=== PATIENT | female | born 1995 | race Caucasian/White ===

== ENCOUNTER 2018-02-20 11:05 | Emergency (ER) | payer MEDICAID ==
[~2018-02-20] VITALS: Ht 154.9 cm; Wt 70.5 kg
[~2018-02-20 11:05] MED LIST: IBUPROFEN600 MG PO; PERCOCET 5-3251 TAB PO
[2018-02-20 11:11] VITALS: Ht 154.9 cm; Wt 70.5 kg
[2018-02-20] MEDS ORDERED: PREDNISONE20 MG PO (13:16)
[2018-02-20] MEDS ORDERED: EPIPEN0.3 MG/0.3 IM (13:16)
[2018-02-20 13:35] VITALS: BP 122/76
== END 2018-02-20 13:37 | disposition home or self-care (01) ==
LOC: D.ER 11:05
DX: L50.9 Urticaria, unspecified (principal)

== ENCOUNTER → 2018-11-26 14:40 | Outpatient (CLI) | payer SELFPAY ==
[2018-02-20 11:11] VITALS: BMI 29.3
[~2018-11-26 14:40] MED LIST changes: +EPIPEN0.3 MG/0.3 IM; +PREDNISONE20 MG PO
[2018-11-26 17:10] LABS: BASOPHILS 0.1 % (0-2); EOSINOPHILS 2.2 % (0-7); HEMATOCRIT 33.6 % (36.0-48.0); HEMOGLOBIN 11.3 g/dL (12-16); IMMATURE GRANULOCYTES 0.2 % (0-5); LYMPHOCYTES 20.3 % (15-50); MCHC 33.6 g/dL (31.0-37.0); MCV 86.4 fL (80.0-100.0); MEAN PLATELET VOLUME 11.5 fL (7.4-10.4); MONOCYTES 5.7 % (2-11); NEUTROPHILS 71.5 % (40-80); RBC 3.89 10x6/uL (4.00-5.40); RDW 14.2 % (11.5-14.5); WBC 9.8 10x3/uL (4.8-10.8)
[2018-11-26 17:12] LABS: PLATELET COUNT 177 10x3/uL (130-400)
[2018-11-26 17:31] LABS: APPEARANCE CLEAR (CLEAR); BILIRUBIN NEGATIVE (NEGATIVE); COLOR YELLOW (YELLOW); GLUCOSE NEGATIVE (NEGATIVE); KETONE NEGATIVE (NEGATIVE); NITRITE NEGATIVE (NEGATIVE); PROTEIN NEGATIVE (NEGATIVE); SPECIFIC GRAVITY 1.015 (1.005-1.020); UROBILINOGEN NORMAL (NORMAL)
== END | disposition home or self-care (01) ==
LOC: D.LDO 14:40
PROVIDERS: ATTEND Obstetrics & Gynecology
DX: O26.892 Other specified pregnancy related conditions, second trimester (principal); Z3A.21 21 weeks gestation of pregnancy

== ENCOUNTER 2019-03-19 17:11 | Inpatient (IN) | payer MEDICAID ==
[~2019-03-19] VITALS: Ht 154.9 cm; Wt 90.7 kg
[2019-03-19 18:26] LABS: APPEARANCE CLOUDY (CLEAR); BILIRUBIN NEGATIVE (NEGATIVE); COLOR YELLOW (YELLOW); GLUCOSE NEGATIVE (NEGATIVE); KETONE NEGATIVE (NEGATIVE); NITRITE NEGATIVE (NEGATIVE); PROTEIN 1+ mg/dL (NEGATIVE); SPECIFIC GRAVITY 1.025 (1.005-1.020); UROBILINOGEN NORMAL (NORMAL)
[2019-03-20] VITALS (16 sets, daily range): BP systolic 110–132; BP diastolic 56–83; Ht 154.9 cm; Wt 90.7 kg
[2019-03-20 00:15] LABS: HEMATOCRIT 33.1 % (36.0-48.0); MCH 27.5 pg (26.0-34.0); MCHC 33.2 g/dL (31.0-37.0); MCV 82.8 fL (80.0-100.0); MEAN PLATELET VOLUME 11.5 fL (7.4-10.4); RDW 14.3 % (11.5-14.5); WBC 11.3 10x3/uL (4.8-10.8)
--- NOTE | 2019-03-20 02:43 | NUR ---
REC'D PT BACK TO ROOM AT 0243 FROM RECOVERY ROOM. DROWSY, BUT EASILY AROUSES TO VOICE. VSS. FUNDUS FIRM WITH SLIGHT LEFT SHIFT NOTED, U1 WITH SMALL RUBRA LOCHIA, NO CLOTS NOTED. C/O PAIN 7/10 FOLLOWING FUNDAL CHECK. BREATH SOUNDS CLEAR AND EQUAL, HYPOACTIVE BOWEL SOUNDS PRESENT X4 QUADRANTS. DRSG COVERING LOWER TRANSVERSE ABD INCISION CLEAN DRY AND INTACT WITH NO DRAINAGE NOTED. SCD'S ON BLE. INSTRUCTED ON USE OF INCENTIVE SPIROMETER WITH UNDERSTANDING DEMONSTRATED X3. COUGH AND DEEP BREATHING DONE WITH GOOD EFFORT. 250 MLS YELLOW CONCENTRATED URINE EMPTIED FROM BAZZI, BAZZI LEFT TO BEDSIDE DRAINAGE. SIGNIFICANT OTHER BROUGHT TO ROOM PER PT REQUEST. ICE WATER PROVIDED AND PT INSTRUCTED TO TAKE SLOW SMALL SIPS, VERBALIZES UNDERSTANDING. BED IN LOW POSITION WITH UPPER SIDE RAILS RAISED X2. CALL LIGHT AND PHONE WITHIN REACH. PT ABLE TO MOVE BILATERAL FEET AT THIS TIME.
--- NOTE | 2019-03-20 03:00 | NUR ---
V/S REMAIN STABLE. FUNDUS FIRM, MIDLINE AND U1 WITH SCANT RUBRA LOCHIA NOTED TO PERIPADS, NO CLOTS PERSENT. REPORTS PAIN INCREASED TO 9/10 WITH FUNDAL CHECK AND REQUEST PAIN MEDICATION. NO ORDERS NOTED AT THIS TIME. DR. GOLDEN PAGED WITH IMMEDIATE CALL BACK AND ORDERS REC'D.
--- NOTE | 2019-03-20 03:20 | NUR ---
HYDROMORPHONE FITTER MACHINIST INITIATED PER ORDER. PT INSTRUCTED ON USE AND DEMONSTRATES UNDERSTANDING. TEARFUL, PAIN 10/10. FITTER MACHINIST BUTTON USED PER PT AT THIS TIME. FUNDUS FIRM MIDLINE AND U1 WITH SCANT RUBRA LOCHIA NOTED, NO CLOTS NOTED. VISITORS AT BEDSIDE AT THIS TIME. WILL CONTINUE TO MONITOR.
--- NOTE | 2019-03-20 04:00 | NUR ---
V/S REMAIN STABLE. REPORTS THAT PAIN IS "BEGINNING TO GET BETTER" /. REPORTS THAT SHE IS USING MANAGER UNIVERSAL BUTTON. FUNDUS REMAINS FIRM MIDLINE AND U1 WITH SMALL RUBRA LOCHIA, PERICARE DONE AND PERIPAD CHANGED. NO CLOTS NOTED. DRSG TO LOWER TRANSVERSE ABD INCISION REMAINS CLEAN DRY AND INTACT WITH NO DRAINAGE NOTED. CONVERSING WITH VISITORS INTERMITTENTLY. COUGH AND DEEP BREATHING DONE WITH GOOD EFFORT. BED IN LOW POSITION WITH UPPER SIDE RAILS RAISED X2. CALL LIGHT AND PHONE WITHIN REACH. WILL CONTINUE TO MONITOR. ICE PACK REPLACED.
--- NOTE | 2019-03-20 04:33 | NUR ---
BONDING WITH INFANT AND ATTEMPTING TO BREAST FEED. CECILIA LUZ RN AT BEDSIDE WITH PT. VSS. PT REQUEST FUNDAL CHECK BE PERFORMED FOLLOWING BREAST FEEDING. WILL CONTINUE TO MONITOR.
--- NOTE | 2019-03-20 05:03 | NUR ---
BONDING WITH INFANT. REQUESTS ASSISTANCE WITH BF. ASSISTED PT WITH GETTING TO LATCH. NOTED TO LATCH TO LEFT BREAST AND SUCK AND SWALLOW 3 TIMES. ATTEMPTED TO ASSIST WITH LATCHING TO RT BREAST, SUCKLING BUT NO GOOD LATCH REC'D BY 0519. INFANT PLACED SKIN TO SKIN WITH MOM. INCENTIVE SPIROMETER DONE X3 WITH GOOD EFFORT, COUGH AND DEEP BREATHING DONE WITH GOOD EFFORT. BED IN LOW POSITION WITH UPPER SIDE RAILS RAISED X2. CALL LIGHT AND PHONE WITHIN REACH. WILL CONTINUE TO MONITOR. 60 MLS CONCENTRATED YELLOW URINE EMPTIED FROM BAZZI.
--- NOTE | 2019-03-20 06:21 | NUR ---
VOMITED 150 MLS GREEN EMESIS IN BAG. ZOFRAN GIVEN PER ORDER AND PT REQUEST. PERICARE DONE, CHUX, TOWELS AND PERIPADS CHANGED. VSS. FUNDUS REMAINS FIRM, MIDLINE AND U1 WITH SMALL RUBRA LOCHIA, NO CLOTS. 20 MLS NOTED IN BAZZI, REPORTED TO DR. GOLDEN. PER DR. GOLDEN HE ORDERED CBC AND WILL REVIEW RESULTS. IN ROOM IN OPEN CRIB. FOB AT BEDSIDE, SUPPORTIVE AND ATTENTIVE TO PT AND INFANT NEEDS. SCDS ON BLE. BED IN LOW POSITION WITH UPPER SIDE RAILS RAISED X2. CALL LIGHT AND PHONE WITHIN REACH. WILL CONTINUE TO MONITOR AND ASSIST PRN.
[2019-03-20 07:03] LABS: BASOPHILS 0.1 % (0-2); EOSINOPHILS 0.4 % (0-7); HEMATOCRIT 32.1 % (36.0-48.0); HEMOGLOBIN 10.5 g/dL (12-16); IMMATURE GRANULOCYTES 0.3 % (0-5); LYMPHOCYTES 15.1 % (15-50); MCH 26.8 pg (26.0-34.0); MCHC 32.7 g/dL (31.0-37.0); MCV 81.9 fL (80.0-100.0); MEAN PLATELET VOLUME 11.6 fL (7.4-10.4); MONOCYTES 6.9 % (2-11); NEUTROPHILS 77.2 % (40-80); PLATELET COUNT 162 10x3/uL (130-400); RBC 3.92 10x6/uL (4.00-5.40); RDW 14.3 % (11.5-14.5)
--- NOTE | 2019-03-20 07:23 | NUR ---
DR. GOLDEN ON UNIT, REVIEWS CBC RESULTS. ORDERS REC'D FOR 500 ML BOLUS ONE TIME.
--- NOTE | 2019-03-20 07:27 | NUR ---
RECEIVED PT IN SEMI-PEPPER'S POSITION. AWAKE. AAO X 3. VSS. HRRR WITHOUT AUDIBLE MURMUR. BBS CLEAR. BS X 4. ABDOMEN SOFT/NON-DISTENDED. FUNDUS FIRM AT U/U. RUBRA LOCHIA SMALL AMT. NO CLOTS NOTED. ADOMINAL DRESSING DRY WITH OLD DRAINAGE NOTED. NEG HOMANS' SIGN. PPP. MILD EDEMA NOTED TO BLE. SCDS ON BLE. PUMP ON. BAZZI TO GRAVITY DRAINING CONCENTRATED, INDU URINE. PIV SITE CLEAR TO RIGHT HAND. NS WITH PITOCIN INFUSING AT 125 ML/HR. PT C/O NAUSEA. EMESIS BASIN AND COLD, WET CLOTH PROVIDED. APPROX 100 ML OF BILE-COLORED EMESIS NOTED. GOWN CHANGED. SR UP X 2. CALL LIGHT IN REACH.
--- NOTE | 2019-03-20 09:27 | NUR ---
PT C/O INCISIONAL PAIN OF "2" ON 0-10 PAIN SCALE. TORADOL 30 MG GIVEN SIVP OVER 2 MINUTES. INSTRUCTED PT ON MEDICATION.
--- NOTE | 2019-03-20 10:10 | NUR ---
C/O NAUSEA WITH ONE EPISODE OF EMESIS PER PT MOTHER. COOL WASHCLOTH TO NECK. ZOFRAN 4 MG GIVEN SLOW IVP FOR RELIEF. 2/10 INCISIONAL STINGING, SAYS SHE HAS NOT PUSHED OIL WELL CABLE TOOL DRILLER CONTROLLER RECENTLY. RECEIVED TORADOL FOR PAIN. SITTING UP IN BED HOLDING INFANT. VISITORS X 2 IN ROOM. SIDE RAILS UP X 2, CALL LIGHT IN REACH. BAZZI DRAINING DARK YELLOW URINE, IV SITE WITHOUT SIGNS OF INFILTRATION.
--- NOTE | 2019-03-20 10:30 | NUR ---
DR GOLDEN ON UNIT. NOTIFIED OF PT C/O NAUSEA THIS AM, URINE OUTPUT. ORDERS RECEIVED.
--- NOTE | 2019-03-20 10:36 | NUR ---
PHENERGAN 25 MG GIVEN IM TO RDG. BANDAID TO SITE.
--- NOTE | 2019-03-20 10:50 | NUR ---
DR GOLDEN VISITS WITH PT.
--- NOTE | 2019-03-20 13:07 | NUR ---
PT SITTING IN HIGH PEPPER'S POSITION. VISITS WITH FAMILY. VSS. FRESH ICE PACK AND ICE WATER PROVIDED TO PT. PT DENIES NEEDS OR C/O.
--- NOTE | 2019-03-20 13:09 | NUR ---
PIV CONVERTED TO SALINE LOCK. NORCO 10/325 GIVEN PO ORDERED. PT INSTRUCTED ON MED. VERBALIZES UNDERSTANDING.
--- NOTE | 2019-03-20 14:19 | NUR ---
PERIPAD CHANGED WITH SMALL AMT OF RUBRA LOCHIA NOTED. PT ATTEMPTING TO BREASTFEED AT THIS TIME. DENIES C/O.
--- NOTE | 2019-03-20 16:00 | NUR ---
PT SITTING UP IN BED. VISITS WITH FAMILY. DENIES C/O OR NEEDS.
--- NOTE | 2019-03-20 17:35 | NUR ---
PT C/O INCISIONAL PAIN OF "4" ON 0-10 PAIN SCALE. NORCO 10/325 GIVEN PO ORDERED. PT INSTRUCTED ON MED. VERBALIZES UNDERSTANDING. PT STATES WILL TAKE NAP NOW.
--- NOTE | 2019-03-20 18:24 | NUR ---
BAZZI DC'D WITH 1100 ML OF DARK, YELLOW URINE NOTED IN BAG. PT AMBULATES TO BR. STEADY GAIT. PT UNABLE TO VOID AT THIS TIME. PERICARE DONE PER PT. PANTIES AND PAD ON. PT STATES DESIRE TO AMBULATE IN HALLS. PT AMBULATES WITH SO IN HALLS. TOLERATING WELL.
--- NOTE | 2019-03-20 18:56 | NUR ---
PT SITTING UP IN BED. C/O INCISIONAL PAIN OF "4" ON 0-10 PAIN SCALE. MOTRIN 600 MG GIVEN PO ORDERED.
--- NOTE | 2019-03-20 19:43 | NUR ---
SHIFT ASSESSMENT COMPLETED PER FLOWSHEETS. VSS. FUNDUS FIRM, MIDLINE AND U2 WITH SMALL AMT RUBRA LOCHIA, NO CLOTS. BOWEL SOUNDS PRESENT AND ACTIVE X4. REPORTS THAT SHE HAS NOT VOIDED SINCE BAZZI WAS REMOVED. REPORTS THAT SHE IS PASSING FLATUS. LOWER TRANSVERSE ABD INCISION WELL APPROXIMATED WITH ALISA INTACT, PERIPAD COVERING INCISION CHANGED WITH SCANT AMT SEROSANGUINOUS DRAINAGE NOTED. CLEAN PERIPAD PLACED OVER INCISION BETWEEN ABD FOLD. INSTRUCTED ON INCISIONAL CARE, VERBALIZES UNDERSTANDING. PAIN 2/10 ABD SORENESS AND INCISIONAL BURNING. ICE WATER PROVIDED. DENIES NEEDS AT THIS TIME. BED IN LOW POSITION WITH UPPER SIDE RAILS RAISED X2. CALL LIGHT AND PHONE WITHIN REACH. WILL CONTINUE TO MONITOR.
--- NOTE | 2019-03-20 20:47 | NUR ---
CONVERSING WITH VISITORS. IN ARMS. DENIES NEEDS AT THIS TIME. SCD'S OFF AT THIS TIME PER PT REQUEST. BED IN LOW POSITION WITH UPPER SIDE RAILS RAISED X2. CALL LIGHT AND PHONE WITHIN REACH. WILL CONTINUE TO MONITOR.
--- NOTE | 2019-03-20 21:41 | NUR ---
REPORTS JUST COMPLETED BF. C/O ABD CRAMPING 01/31, NORCO GIVEN PER ORDER AND PT REQUEST. ICE PACK, APPLE JUICE, AND ICE WATER PROVIDED. DENIES ADDITIONAL NEEDS. SIGNIFICANT OTHER AT BEDSIDE, SUPPORTIVE AND ATTENTIVE TO PT AND NEEDS. POC DISCUSSED, VERBALIZES UNDERSTANDING AND DENIES QUESTIONS REFUSES SCD'S.
--- NOTE | 2019-03-20 21:56 | NUR ---
AMBULATORY ON UNIT PUSHING OPEN CRIB WITH INFANT IN CRIB WITH SIGNIFICANT OTHER. VOIDED 500 MLS IN HAT. STEADY GAIT NOTED. DENIES NEEDS. LIN[facility] CHANGED AT THIS TIME. WILL CONTINUE TO MONITOR.
--- NOTE | 2019-03-20 22:20 | NUR ---
PAIN REASSESSMENT COMPLETED. 09/02. DENIES NEEDS. SIGNIFICANT OTHER AT BEDSIDE. REFUSES SCD'S. REQUESTS INFANT REMAIN IN ROOM, REINFORCED THAT WHEN SHE IS SLEEPING INFANT MUST REMAIN SLEEPING IN OPEN CRIB AND NOT IN BED WITH HER, VERBALIZES UNDERSTANDING. DENIES NEEDS AT THIS TIME. BED IN LOW POSITION WITH UPPER SIDE RAILS RAISED X2. CALL LIGHT AND PHONE WITHIN [facility]. WILL CONTINUE TO MONITOR.
[2019-03-21 00:08] VITALS: BP 105/55
--- NOTE | 2019-03-21 00:08 | NUR ---
pt rec'd in bed at this time. denies pain, vss. no distress noted. elvira steward rn
--- NOTE | 2019-03-21 01:27 | NUR ---
C/O PAIN 5/10, ABD CRAMPING, SORENESS, ACHING AND INCISIONAL BURNING AND STINGING. NORCO AND MOTRIN GIVEN PER REQUEST AND ORDER. UP TO BATHROOM. VOIDED 400 MLS IN HAT, PERICARE DONE PER PT. BACK TO BED, APPLE JUICE PROVIDED, DENIES ADDITIONAL NEEDS. BED IN LOW POSITION WITH UPPER SIDE RIALS RAISED X2. CALL LIGHT AND PHONE WITHIN REACH. WILL CONTINUE TO MONITOR. FOB SLEEPING ON COUCH AT BEDSIDE.
--- NOTE | 2019-03-21 02:13 | NUR ---
PAIN REASSESSMENT COMPLETED. RESTING QUIETLY WITH EYES CLOSED IN SEMI-FOWLERS POSITION. RESP REGULAR AND UNLABORED, NO S/S OF DISTRESS NOTED. BED IN LOW POSITION WITH UPPER SIDE RAILS RAISED X2. CALL LIGHT AND PHONE WITHIN REACH. WILL CONTINUE TO MONITOR AND ASSIST PRN.
--- NOTE | 2019-03-21 04:10 | NUR ---
PT AWAKE AND INFANT AT THIS TIME. NO DISTRESS NOTED. NO NEEDS VOICED. Phong BELL RN
[2019-03-21 04:49] VITALS: BP 102/63
--- NOTE | 2019-03-21 04:49 | NUR ---
COMPLETED BF. VSS. UP TO BATHROOM, VOIDED 600 MLS IN HAT. FUNDUS FIRM, MIDLINE AND U2 WITH SCANT RUBRA LOCHIA, NO CLOTS NOTED. INFANT TO NBN PER MOM'S REQUEST. PT AMBULATORY IN AMBROCIO, STEADY GAIT NOTED. DENIES NEEDS AT THIS TIME.
--- NOTE | 2019-03-21 05:28 | NUR ---
C/O ABD CRAMPING AND INCISIONAL BURNING AND STINGING, REQUESTS NORCO, GIVEN PER ORDER AND PT REQUEST. RT HAND PIV REMOVED PER PT REQUEST D/T C/O SORENESS AT SITE. TIP INTACT. BANDAID PLACED.
[2019-03-21 06:26] LABS: BASOPHILS 0.2 % (0-2); EOSINOPHILS 2.4 % (0-7); HEMATOCRIT 29.4 % (36.0-48.0); HEMOGLOBIN 9.5 g/dL (12-16); IMMATURE GRANULOCYTES 0.3 % (0-5); LYMPHOCYTES 30.5 % (15-50); MCH 27.2 pg (26.0-34.0); MCHC 32.3 g/dL (31.0-37.0); MEAN PLATELET VOLUME 11.6 fL (7.4-10.4); MONOCYTES 8.8 % (2-11); NEUTROPHILS 57.8 % (40-80); PLATELET COUNT 151 10x3/uL (130-400); RBC 3.49 10x6/uL (4.00-5.40); RDW 14.6 % (11.5-14.5)
[2019-03-21 06:28] LABS: MCV 84.2 fL (80.0-100.0); WBC 9.8 10x3/uL (4.8-10.8)
[2019-03-21 07:30] VITALS: BP 109/66
--- NOTE | 2019-03-21 07:30 | NUR ---
am assessment completed. see flowsheet. pt denies all needs at this time. regular breakfast tray on bedside table. srup x2, call light and phone within reach.
--- NOTE | 2019-03-21 07:45 | NUR ---
pt requesting pain medication, see emar for all meds adm by this rn. srup x 2, call light and phone within reach. pt denies all other needs at this time.
--- NOTE | 2019-03-21 10:56 | NUR ---
REQUESTING PAIN MEDICATION FOR CRAMPING. RATES PAIN A 4 ON SCALE OF 0-10.
--- NOTE | 2019-03-21 11:30 | NUR ---
pt up to hallway, ambulatory. pt denies all needs at this time.
--- NOTE | 2019-03-21 15:00 | NUR ---
pt requests to take a shower, clean linens provided. sig other in room with pt. pt denies all other needs at this time. sr up x2, call light and phone within reach.
--- NOTE | 2019-03-21 18:15 | NUR ---
requesting apple juice- juice given. pt talking with visitors. no other requests. states that she is burping some.
[2019-03-21 19:26] VITALS: BP 113/71
--- NOTE | 2019-03-21 19:26 | NUR ---
REC'D PT AA&O X 4 SITTING UP IN BED VISITING W/GUESTS. SHIFT ASSESSMENT COMPLETED. SEE FLOWSHEET. PT DENIES PAIN OR NEEDS AT PRESENT.
--- NOTE | 2019-03-21 21:00 | NUR ---
ROUNDS MADE. PT REPORTS SHE IS GETTING READY TO AMBULATE OFF UNIT W/SIG OTHER AND DOES SO AT THIS TIME.
--- NOTE | 2019-03-21 21:43 | NUR ---
pt medicated with motrin for pain level of 3 for incisional pain. elvira steward rn
--- NOTE | 2019-03-21 23:00 | NUR ---
ROUNDS MADE. PT LYING IN BED AA&O X 4. PAIN AND NEEDS ASSESSED. PT DENIES NEEDS OR PAIN AT THIS TIME.
[2019-03-22] VITALS: BP 131/78
--- NOTE | 2019-03-22 | NUR ---
VITALS OBTAINED PER CLYDE, MACHINIST GENERAL. SEE FLOWSHEET.
--- NOTE | 2019-03-22 01:02 | NUR ---
PT AMBULATORY OF UNIT AT THIS TIME W/SIG OTHER.
--- NOTE | 2019-03-22 01:14 | NUR ---
PT RETURNS TO ROOM AND REQUEST PAIN MEDICATION FOR C/O ABD CRAMPING THAT SHE RATES 4/10. NORCO 10/325MG ONE TAB ADMINISTERED. GRAPE JUICE SERVED. PT DENIES ADDITIONAL NEEDS AT THIS TIME.
--- NOTE | 2019-03-22 01:54 | NUR ---
ROUNDS MADE FOR PAIN REASSESSMENT. PT CURRENTLY SLEEPING W/SNORING AUDIBLE IN HIGH PEPPER'S. RESP EVEN. PT LEFT UNDISTURBED AT THIST MARJ.
--- NOTE | 2019-03-22 04:00 | NUR ---
ROUNDS MADE. PT CURRENTLY SITTING UP IN BED INFANT. PT DENIES PAIN OR NEEDS AT THIS TIME.
--- NOTE | 2019-03-22 05:58 | NUR ---
ROUNDS MADE. PT CURRENTLY UP AMBULATING IN ROOM W/ UP IN ARMS. PAIN AND NEEDS ASSESSED. PT REQUEST MOTRIN FOR C/O CRAMPING. MOTRIN ADMINISTERED. SEE EMAR. DENIES FURTHER NEEDS.
[2019-03-22 06:09] LABS: RAPID PLASMA REAGIN Non Reactive (Non Reactive)
--- NOTE | 2019-03-22 07:30 | NUR ---
PT GETTING UP TO BR, INFORMED PT THAT I WILL BE BACK TO DO ASSESSMENT, PT VERBALIZES UNDERSTANDING, DENIES NEEDS AT THIS TIME
--- NOTE | 2019-03-22 08:08 | NUR ---
DR GOLDEN PHONED REGARDING PLAN WITH PT FOLLOWING AM ROUNDS. ORDER RCVD FOR D/C TO HOME.
[2019-03-22 08:10] VITALS: BP 122/69
--- NOTE | 2019-03-22 08:10 | NUR ---
ASSESSMENT PER FLOW SHEET, VS OBTAINED, FF, ML, U/2, PT REPORTS LITE BLEEDING WITH NO CLOTS, STATES "I HAD A SMALL CLOT YESTER, BUT NONE SO FAR TODAY", BIKINI INC WITH ALISA CDI WITH NO DRAINAGE NOTED, MICHAELA PAD OVER INC FOR COMFORT AND MOISTURE CONTROL, PT REPORTS FLATUS, NO BM AND VOIDING WITH NO DIFFICULTY, PT RATES CRAMPING 3/10, INFORMED PT THAT I WILL LOOK TO SEE WHEN MEDS ARE DUE, PT VERBALIZES UNDERSTANDING, PT READY TO TAKE A SHOWER, WILL BRING TOWELS, PT DENIES FURTHER NEEDS, IN OPEN CRIB CART AND FOB AT BEDSIDE
--- NOTE | 2019-03-22 08:28 | NUR ---
INFORMED PT THAT I HAVE CALLED [employer] FOR TOWELS AND WHEN THEY BRING THEM, I WILL BRING THEM TO HER, PT STATES "OH, THAT'S FINE", PT ALSO INFORMED THAT SHE HAS A DISCHARGE ORDER FOR TODAY, PT STATES "GREAT, I'M READY TO GO HOME", POC DISCUSSED WITH PT, PT VERBALIZES UNDERSTANDING, DENIES FURTHER NEEDS
--- NOTE | 2019-03-22 09:04 | NUR ---
TDAP INFORMATION PROVIDED TO PT
--- NOTE | 2019-03-22 09:08 | NUR ---
INFANT TO ROOM VIA OPEN CRIB CART PER THIS RN, CASE MANAGEMENT TO ROOM
--- NOTE | 2019-03-22 10:21 | NUR ---
PT ENGINEERING INSPECTOR LIGHT, C/O INC PAIN, ADM PAIN MED PER MD ORDERS, SEE EMAR, PT REQUESTED AND SERVED GRAPE JUICE, ALICIA DIAZ NEEDS
[2019-03-22] MEDS ORDERED: HYDROCODON-ACE1 EA10 PO (11:11)
[2019-03-22] MEDS ORDERED: IBUPROFEN600 MG PO (11:12)
--- NOTE | 2019-03-22 11:30 | NUR ---
PT SITTING ON COUCH WITH FOB, PT DENIES NEEDS OR PAIN AT THIS TIME, STATES "I'M JUST READY TO GO", INFORMED PT THAT SOON INFANT IS DISCHARGED, SHE WILL BE DISCHARGED, PT VERBALIZES UNDERSTANDING
--- NOTE | 2019-03-22 12:12 | NUR ---
WENT OVER DISCHARGE PAPERWORK WITH PT, PT VERBALIZES UNDERSTANDING, INFORMED PT AGAIN THAT WE WILL HAVE TO WAIT ON THE CLINICAL MOLECULAR GENETICIST TO DISCHARGE , FOB IN ROOM
--- NOTE | 2019-03-22 13:30 | NUR ---
INFORMED PT THAT JAMAICA LUNDBERG LPN WAS DOING INFANTS DISCHARGE AT THIS TIME, PT VERBALIZES UNDERSTANDING, DENIES NEEDS OR PAIN AT THIS TIME
--- NOTE | 2019-03-22 13:53 | NUR ---
PT DISCHARGED VIA WC HOME WITH INFANT AND FOB, PT HAS ALL BELONGINGS AND DISCHARGE PAPERWORK IN HAND
--- NOTE | 2019-04-13 11:40 | OP ---
PATIENT NAME: RAND DORANTES MEDICAL RECORD: [id number] :97 LOCATION:[id number] ADMISSION DATE:03/19/19 SURGEON: CARLO BOLIVAR MD DATE OF OPERATION: 03/19/2019 PREOPERATIVE DIAGNOSES: 1. Term intrauterine at 37 weeks. 2. Latent labor. 3. History of previous section. POSTOPERATIVE DIAGNOSES: 1. Term intrauterine at 37 weeks. 2. Latent labor. 3. History of previous section. PROCEDURE: Repeat low transverse section. SURGEON: Carlo Bolivar MD ANESTHESIA: Regional via spinal. INTRAVENOUS FLUIDS: Per anesthesia record. ESTIMATED BLOOD LOSS: 1000 cc. FINDINGS: 1. Viable , Apgars 9 at 1 and 9 at 5. 2. Placenta delivered manually intact, 3-vessel cord noted. 3. Normal adnexa bilaterally. SPECIMENS: Include cord for gases and placenta. COMPLICATIONS: None apparent. PROCEDURE IN DETAIL: The patient was taken to the operating room, where regional anesthesia was achieved without any difficulty. The patient was then prepped and draped in normal sterile fashion in the dorsal supine position. SCDs were on and functioning normally. A Wellington catheter had been placed and was draining freely. Following prep and drape, a repeat Pfannenstiel skin incision was made and extended downward to the underlying subcutaneous fat to level of the fascia. The fascia was then excised in the midline with scalpel and excised bilaterally using the Castellano scissors and the Bovie cautery. The superior and inferior aspects of the fascial incision were grasped with Patience clamps times 2, tented upward, and sharply dissected from the underlying rectus muscle using the Castellano scissors and the Bovie cautery. Rectus muscle was then bluntly in the midline and the peritoneum was entered at the superior aspect of the incision. Careful dissection of the peritoneum was performed and several adhesive bands were removed from the anterior surface of the uterus. A bladder flap was created by excising the anterior leaf of the broad ligament across the lower uterine segment. A bladder blade was then placed into the pelvis and a low transverse incision was made, extended superiorly and inferiorly using the Pelosi method. The vertex was removed atraumatically followed by the body. The infant was bulb suctioned upon delivery. Cord was clamped times 2, cut, and the was handed to the awaiting nursery team. Cord was then obtained for gases and the placenta was removed manually intact. The uterus was OPERATIVE REPORT [id number] RAND DORANTES then exteriorized, cleared of all clots and debris, and vigorously massaged until good uterine tone was noted. The uterine incision was repaired with #0 Vicryl in a running locked fashion times 2 with good hemostasis noted. Posterior cul-de-sac was then thoroughly irrigated and uterus was returned to the pelvis. Counts were correct times 2 for sponges, needles, and instruments. The fascia was repaired with #0 loop PDS times 1 and the skin was repaired with pedro. The patient tolerated the procedure well. She was transferred to postanesthesia recovery stable without incident. TRANSINT:[id number] Voice Confirmation ID: [id number] DOCUMENT ID: [id number] CARLO BOLIVAR MD at 1140 CC: [id number] DICTATION DATE: 03/27/19 1649 MANAGER OF CLINICAL: 03/27/192019 DIS IN 03/22/19 [id number] [place] [address]
== END 2019-03-22 13:53 | disposition home or self-care (01) | DRG 788 ==
LOC: D.LDO 17:11 → D.LD 22:49 → D.LDO 23:53 → D.LD 23:53
PROVIDERS: ADMIT Obstetrics & Gynecology; ATTEND Obstetrics & Gynecology
PROC: 10D00Z1 Extraction of Products of Conception, Low, Open Approach (ICD-10-PCS; principal; 2019-03-20 01:04)
DX: O99.824 Streptococcus B carrier state complicating childbirth (principal); Z3A.37 37 weeks gestation of pregnancy; Z37.0 Single live birth; O34.211 Maternal care for low transverse scar from previous cesarean delivery